=== PATIENT | female | born 1985 | race Caucasian/White ===

== ENCOUNTER → 2019-09-09 13:43 | Outpatient (CLI) | payer OTHER, SELFPAY ==
--- NOTE | ~2019-09-09 | US_ITS ---
EXAMINATION: US transvaginal DATE: 09/09/2019 14:22 INDICATION: Pelvic pain. Palpable right adnexa. TECHNIQUE: Multiple transabdominal and endovaginal sonographic images of the pelvis were obtained. COMPARISON: None. FINDINGS: The uterus measures 8.0 x 3.5 x 4.9 cm. The endometrial complex measures 5 mm in thickness. The righ t ovary measures 4.1 x 3.5 x 4.5 cm. There are few subcentimeter anechoic follicles in the right ovar y. Vascular flow identified in the right ovary on color Doppler. The left ovary measures 6.6 x 4.3 x 5.1 cm. 2.7 x 2.4 x 2.4 cm anechoic dominant follicle in the left ovary. Also in the left ovary is a 2.4 x 1.7 x 1.0 cm crescentic complex cystic lesion draped along the margins of the dominant follicle . There is a reticulated pattern of thin internal septations within this lesion suggesting organizing hemorrhage likely in a partially collapsed hemorrhagic cyst. There appears to be some vascular flow on color Doppler within or along the margins of the complex cystic lesion. Small amount of free fluid along side the left ovary and extending into the cul-de-sac. IMPRESSION: 1. 2.4 x 1.7 x 1.0 cm crescentic complex cystic lesion draped over the periphery of a larger 2.7 cm l ikely dominant follicle in the left ovary. Appearance suggests an evolving partially collapsed hemorr hagic cyst with small amount of free fluid along side the left ovary and extending to the cul-de-sac. Although appearance favors a hemorrhagic cyst, given the vascular flow associated with the lesion wo uld recommend follow-up ultrasound in 6-12 weeks to document resolution. Reviewed, dictated and finalized at location A. IMPRESSION: 1. 2.4 x 1.7 x 1.0 cm crescentic complex cystic lesion draped over the peripher y of a larger 2.7 cm likely dominant follicle in the left ovary. Appearance sug gests an evolving partially collapsed hemorrhagic cyst with small amount of radha e fluid along side the left ovary and extending to the cul-de-sac. Although jacques earance favors a hemorrhagic cyst, given the vascular flow associated with the lesion would recommend follow-up ultrasound in 6-12 weeks to document resolutio n.
== END ==
PROVIDERS: Visit Provider Nurse Practitioner
DX: R10.2 Pelvic and perineal pain (principal); N83.9 Noninflammatory disorder of ovary, fallopian tube and broad ligament, unspecified
CPT/HCPCS: 76830

== ENCOUNTER → 2022-05-16 12:54 | Outpatient (CLI) | payer OTHER, SELFPAY ==
--- NOTE | ~2022-05-16 | US_ITS ---
EXAMINATION: US transvaginal DATE: 05/16/2022 13:13 INDICATION: Follow-up ovarian cyst Comparison:09/09/2019 TECHNIQUE: Multiple transabdominal and endovaginal sonographic images of the pelvis performed. FINDINGS: The uterus measures 7.8 x 3.4 x 3.8 cm. The endometrial complex measures 4 mm. The right ovary measures 3.1 x 2.1 x 2. cm and the left ovary measures 2 x 1.8 x 2.5 cm. There are s mall follicles in each ovary. Normal doppler signal in both ovaries. There is no free fluid in the pelvis. There are no abnormal masses seen on either side. IMPRESSION: 1. Unremarkable pelvic ultrasound. Reviewed, dictated and finalized at location B. EM OPERATOR
== END ==
PROVIDERS: PCP Nurse Practitioner; Visit Provider Nurse Practitioner
DX: N83.202 Unspecified ovarian cyst, left side (principal)
CPT/HCPCS: 76830